=== PATIENT | female | born 1985 | race Caucasian/White ===

== ENCOUNTER 2018-04-14 15:07 | Inpatient (IN) | payer OTHER ==
[2018-04-14] MEDS ORDERED: OXYTOCIN 30 UNITS/LR 500 ML IV ×3 (16:00→17:30)
[2018-04-14] MEDS ORDERED: BUTORPHANOL 2 MG INJ IV (16:00)
[2018-04-14] MEDS ORDERED: MISOPROSTOL 200 MCG TAB PR (16:00)
[2018-04-14] MEDS ORDERED: METHYLERGONOVINE 0.2 MG INJ IM (16:00)
[2018-04-14] MEDS ORDERED: CARBOPROST 250 MCG INJ IM (16:00)
[2018-04-14] MEDS ORDERED: BUTORPHANOL 1 MG INJ IV (16:00)
[2018-04-14] MEDS ORDERED: LIDOCAINE 1% (MPF) 30 ML INJ INJ (16:00)
[2018-04-14] MEDS: LACTATED RINGER'S 1,000 ML IV ×3 (16:02→21:58)
[2018-04-14 16:33] LABS: ADD MAN DIFF? NO
[2018-04-14 16:35] LABS: BASOPHILS % 0.4 % (0.0-2.0); EOSINOPHILS # 0.1 10^3/ul (0.0-0.5); EOSINOPHILS % 1.4 % (0.0-7.0); HEMATOCRIT 39.2 % (37.0-47.0); HEMOGLOBIN 13.3 g/dl (12.0-16.0); LYMPHOCYTES # 2.2 10^3/ul (0.8-2.9); MEAN CORPUSCULAR HEMOGLOBIN 30.2 pg (29.0-33.0); MEAN CORPUSCULAR HGB CONC 33.9 g/dl (32.0-37.0); MEAN CORPUSCULAR VOLUME 88.9 fl (82.0-101.0); MEAN PLATELET VOLUME 10.5 fl (7.4-10.4); MONOCYTE # 0.7 10^3/ul (0.3-0.9); MONOCYTES % 7.4 % (0.0-11.0); NEUTROPHILS % 66.2 % (39.0-77.0); PLATELET COUNT 279 10^3/UL (140-415); RED BLOOD COUNT 4.41 10^6/ul (4.20-5.40); RED CELL DISTRIBUTION WIDTH 13.4 % (11.5-14.5)
[2018-04-14] MEDS: AMPICILLIN 2 GM/NS (PMX) 100 ML IV (16:38)
[2018-04-14] MEDS: MISOPROSTOL 25 MCG CAPSULE PO (17:00)
[2018-04-14 17:10] LABS: INR 0.84; PROTIME 11.6 Sec (11.9-14.9); PT RATIO 0.9
[2018-04-14 17:11] LABS: PARTIAL THROMBOPLASTIN TIME 28.1 Sec (25.0-35.0)
[2018-04-14] MEDS: OXYTOCIN 30 UNITS/LR 500 ML IV (17:54)
[2018-04-14] MEDS: AMPICILLIN 1 GM/NS (PMX) 50 ML IV (19:57)
[2018-04-14] MEDS ORDERED: FENTAnyl 2MCG/ML-ROPIV 0.2% 100 ML (21:04)
[2018-04-14] MEDS ORDERED: NALOXONE (0.4 MG/ML) INJ IV (22:00)
[2018-04-15] MEDS: AMPICILLIN 1 GM/NS (PMX) 50 ML IV ×4 (00:28→11:55)
[2018-04-15] MEDS: FENTAnyl 2MCG/ML-ROPIV 0.2% 100 ML BAG EPI ×2 (04:26→11:59)
[2018-04-15] MEDS: LACTATED RINGER'S 1,000 ML IV ×2 (04:29→11:55)
[2018-04-15] MEDS: OXYTOCIN 30 UNITS/LR 500 ML IV ×2 (14:32→20:00)
[2018-04-15] MEDS: IBUPROFEN 600 MG TAB PO ×2 (15:34→18:00)
[2018-04-15] MEDS ORDERED: ONDANSETRON 4 MG INJ IV (16:30)
[2018-04-15] MEDS ORDERED: NACL 0.9% 3 ML SYG IV (16:30)
[2018-04-15] MEDS ORDERED: MISOPROSTOL 200 MCG TAB PR (16:30)
[2018-04-15] MEDS ORDERED: SENNA/DOCUSATE NA (8.6MG/50MG) TAB PO (16:30)
[2018-04-15] MEDS ORDERED: CARBOPROST 250 MCG INJ IM (16:30)
[2018-04-15] MEDS ORDERED: OXYCODONE/ASPIRIN (4.88/325) TAB PO (16:30)
[2018-04-15] MEDS ORDERED: OXYTOCIN 30 UNITS/LR 500 ML IV (16:30)
[2018-04-15] MEDS ORDERED: METHYLERGONOVINE 0.2 MG INJ IM (16:30)
[2018-04-15] MEDS ORDERED: ZOLPIDEM 5 MG TAB PO (16:30)
[2018-04-15] MEDS: BENZOCAINE 20% 56 ML SPRAY TOP (18:39)
[2018-04-15] MEDS: WITCH HAZEL/GLYCERIN PAD PR (18:39)
[2018-04-15] MEDS: LANOLIN 7 GM TUBE TOP (18:39)
[2018-04-15] MEDS: SENNA/DOCUSATE NA (8.6MG/50MG) TAB PO (21:33)
[2018-04-15 23:13] LABS: RAPID PLASMA REAGIN NONREACTIVE (NR)
[2018-04-16] MEDS: IBUPROFEN 600 MG TAB PO ×5 (00:38→23:46)
[2018-04-16 08:17] LABS: ADD MAN DIFF? NO
[2018-04-16 08:36] LABS: BASOPHIL # 0.1 10^3/ul (0.0-0.1); BASOPHILS % 0.5 % (0.0-2.0); EOSINOPHILS # 0.3 10^3/ul (0.0-0.5); EOSINOPHILS % 1.7 % (0.0-7.0); HEMATOCRIT 32.8 % (37.0-47.0); HEMOGLOBIN 10.9 g/dl (12.0-16.0); LYMPHOCYTES # 3.1 10^3/ul (0.8-2.9); LYMPHOCYTES % 20.1 % (15.0-51.0); MEAN CORPUSCULAR HEMOGLOBIN 30.1 pg (29.0-33.0); MEAN CORPUSCULAR HGB CONC 33.2 g/dl (32.0-37.0); MEAN CORPUSCULAR VOLUME 90.6 fl (82.0-101.0); MEAN PLATELET VOLUME 10.7 fl (7.4-10.4); MONOCYTE # 0.9 10^3/ul (0.3-0.9); MONOCYTES % 5.8 % (0.0-11.0); NEUTROPHILS % 71.3 % (39.0-77.0); PLATELET COUNT 204 10^3/UL (140-415); RED BLOOD COUNT 3.62 10^6/ul (4.20-5.40); RED CELL DISTRIBUTION WIDTH 14.1 % (11.5-14.5)
[2018-04-16 08:36] LABS: WHITE BLOOD COUNT 15.5 10^3/ul (4.8-10.8)
[2018-04-16] MEDS: SENNA/DOCUSATE NA (8.6MG/50MG) TAB PO ×2 (08:51→21:25)
[2018-04-16] MEDS: WITCH HAZEL/GLYCERIN PAD PR (18:02)
[2018-04-16] MEDS: BENZOCAINE 20% 56 ML SPRAY TOP (18:02)
[2018-04-17] MEDS: IBUPROFEN 600 MG TAB PO ×3 (05:37→14:25)
[2018-04-17] MEDS: DIPHTH/TET/ACEL PERTUSS (ADULT) 0.5 ML VIAL IM* (09:00)
[2018-04-17] MEDS: SENNA/DOCUSATE NA (8.6MG/50MG) TAB PO (10:39)
== END 2018-04-17 15:00 | disposition home or self-care (01) | DRG 775 ==
LOC: OBT 15:07 → L-D 15:09 → PP1 04-15 15:44 → OBT 15:30 → L-D 15:30
PROVIDERS: Obstetrics & Gynecology Obstetrics
PROC: 10E0XZZ Delivery of Products of Conception, External Approach (ICD-10-PCS; principal; 2018-04-15)
PROC: 3E033VJ Introduction of Other Hormone into Peripheral Vein, Percutaneous Approach (ICD-10-PCS; 2018-04-15)
DX: O48.0 Post-term pregnancy (principal); Z3A.41 41 weeks gestation of pregnancy; Z37.0 Single live birth
CPT/HCPCS: 62319; 85025; 85610; 85730; 86592; 86850; 86900; 86901; 99464